=== PATIENT | male | born 1965 | race Caucasian/White ===

== ENCOUNTER → 2018-06-26 12:08 | Outpatient (CLI) | payer OTHER, SELFPAY ==
--- NOTE | 2018-06-26 12:14 | RAD_ITS ---
STUDY: X-RAY - PELVIS AND RIGHT HIP REASON FOR EXAM: Male, 53 years old. Pain TECHNIQUE: Three views of the pelvis and hip were obtained. COMPARISON: None. FINDINGS: The bowel gas pattern is unremarkable. There are phleboliths in the lower right pelvis. There are moderate degenerative changes in the lower lumbar spine. There are mild degenerative changes in the sacroiliac joints. There are small enthesophytes off both iliac bones. No abnormalities are seen in the visualized superior and inferior pubic rami. Normal appearing pubic symphysis. The visualized ischial tuberosities are unremarkable. The proximal femur shows no significant abnormalities. The acetabulum shows no significant abnormalities. The hip joint is normal in appearance. RAD/HIP, UNI W/ Pelvis 2-3 Views IMPRESSION: No significant abnormalities are seen radiographically in the right hip. Electronically Signed: Hanna Kolb MD at 17:45 EST Tel Direct: [phone], Service support ,
== END ==
PROVIDERS: Family Provider Family Medicine; PCP Family Medicine; Referring Provider Family Medicine; Visit Provider Family Medicine
DX: M25.551 Pain in right hip (principal)
CPT/HCPCS: 73502

== ENCOUNTER → 2018-10-01 08:17 | Outpatient (CLI) | payer OTHER, SELFPAY ==
[2018-10-01 10:17] LABS: Absolute Lymphocyte Count 1.72 X10^3/ul (0.83-4.51); Anion Gap 7 (5-15); BUN 15 mg/dL (7-18); BUN/Creat Ratio 16.1 RATIO (10-20); Basophil# 0.02 X10^3/uL; Basophil% 0.4 % (0-1); Calcium,Total 9.1 mg/dL (8.5-10.1); Chloride 103 mmol/L (98-107); Creatinine, Serum 0.93 mg/dL (0.70-1.30); EST Glomerular Filtration Rate 89 mL/min (>60); Eosinophil# 0.15 X10^3/uL; Eosinophils% 2.8 % (0-5); Est Glom Filt Rate - Afr Amer 108 mL/min (>60); Glucose 91 mg/dL (74-106); Hematocrit 43.5 % (40-54); Hemoglobin 14.9 g/dl (13.0-16.5); Lymphocyte # 1.72 X10^3/ul (4.0); Lymphocyte % 31.7 % (19-41); Mean Corp Hgb Conc 34.3 g/gl (32-36); Mean Corpuscular Hgb 31.6 pg (27.0-32.0); Mean Corpuscular Volume 92.4 fL (80-94); Mean Platelet Vol. 12.7 fl (6.2-12.0); Monocyte% 9.2 % (0-10); Neutrophil # 3.01 X10^3/uL (2.7-7.7); Neutrophil % 55.5 % (47-70); Platelet Count 134 K/mm3 (150-450); Potassium 4.4 mmol/L (3.5-5.1); RBC Distribution Width CV 13.3 % (11.6-14.6); RBC Distribution Width SD 43.8 fl (35.1-43.9); Red Blood Count 4.71 M/mm3 (4.6-6.2); Sodium Level 139 mmol/L (136-145); White Blood Count 5.4 K/mm3 (4.4-11.0)
[2018-10-01 10:38] LABS: POSITIVE COUNT NO; POSITIVE DIFFERENTIAL NO; POSITIVE MORPHOLOGY NO
== END ==
PROVIDERS: Family Provider Family Medicine; PCP Family Medicine; Visit Provider Family Medicine
DX: K46.9 Unspecified abdominal hernia without obstruction or gangrene (principal)
CPT/HCPCS: 36415; 80048; 85025

== ENCOUNTER 2020-02-03 06:51 | Day surgery (SDC) | payer OTHER, SELFPAY ==
[2018-10-10 08:34] VITALS: BMI 28.1
[2020-02-03 07:05] VITALS: BP 151/83; PULSE 64; RESP 16; TEMP 36.4; O2SAT 100; BMI 26.3
[2020-02-03] MEDS: Lactated Ringers 1,000 ML 100 ML IV (07:15)
--- NOTE | 2020-02-03 07:56 | H&P.OPEN ---
History of Present Illness Date of Admission: 02/03/20 The patient is a 55 year old M who presents for screening colonoscopy. Patient had his last colonoscopy when he was 33 years old for rectal bleeding which was negative. Was done by Dr. Reyes Past Medical/Surgical History - Planned Operation Planned Operative Procedure/s: cscope Date of Operative Procedure: 02/03/20 Permit Signed: No S.O.S: No Is This Patient Having a Total Joint: No - Previous Hospitalizations/Surgeries HX Hospitalizations: No HX of Surgeries: left wrist surgery. inguinal hernia repair x2 with vasectomy. cscope Any Problems With Anesthesia: No You/Your Family Experience Fever (Hyperthermia) With Anes: No Cholinesterase deficiency: No - Cardiovascular Hx Chest Pain within Last 2 months: No Hx of Irregular Heartbeat and/or Afib: No Hx Heart Attack: No Hx Congestive Heart Failure: No Hx Rheumatic Fever: No Hx Hypertension: No Hx Internal Defibrillator: No Hx Pacemaker: No Hx Cardiac Catheterization: No Hx Cardiac Surgery/Stents/Etc.: No Hx Stress Test: No HX Edema: No Hx Pain in Legs when Walking/Leg Cramps: No - Respiratory Chronic Cough: No HX of Shortness of Breath: No Hoarseness: No Hx Chronic Obstructive Pulmonary Disease (COPD): No Hx Asthma: No Hx Emphysema: No Hx Sleep Apnea: No Hx Oxygen Use at Home: No Hx Respiratory Tract Infection/Cold (presently): No Do You Snore Loudly (louder than talking or can be heard): No Do You Often Feel Tired/ Fatigued/ Sleepy Dring Daytime?: No Has Anyone Observed You Stop Breathing During Sleep?: No Result (for STOP score): Negative Hx Smoking: Yes Smoking Status: Current some day smoker - Gastrointestinal Hx Gastroesophageal Reflux: No Hx Gastrointestinal Disorders: No Hx Gastrointestinal Bleed: No Hx Ulcer: No Hx Hiatal Hernia: No Difficulty Chewing/Swallowing: No Recent Onset of Swallowing Problems: No Special diet followed at home: No Hx Unplanned Weight Loss of 20#: No HX Unplanned Weight Gain of 20#: No - Neurological Hx Seizures: No HX Syncope/Blackout Spells/Unconsciousness: No Hx CVA/Stroke: No Hx Transient Ischemic Attacks (TIA): No Hx Multiple Sclerosis: No Hx Parkinson's Disease: No Hx Head/Neck Injury: No Hx Headaches: No Hx Back Injury/Pain: No Recent Onset of Speech Difficulty: No Restless Legs: No Does patient have nerve stimulator: No Patient instructed to have device shut off: No Rep notified?: No - Blood Disorder Hx Leukemia: No Bleeding Tendencies: No Hx Deep Vein Thrombosis: No Hx High Cholesterol: No Blood Transmitted Disease: No Hx Hepatitis: No Hx Cirrhosis: No Hx Anemia: No Hx Blood Disorders: No - Genitourinary Hx Renal Disease: No - Musculoskeletal Hx Arthritis: No Hx Rheumatoid Arthritis: No Hx Gout: No Recent Onset of an Orthopedic Problem: No - Endocrine Hx Diabetes: No Thyroid Disease: No Hx Steroid Therapy: No - Psycho/Social Hx Substance Use: No Hx Alcohol Use: Yes - 3 beers daily Hx Anxiety: No Hx Depression: No Mental Illness: No Hx Dementia: No - Miscellaneous Hx Cancer: No Recent Exposure to Contagious Disease: No Active MRSA: No Hx of C-Diff: No Any Loose Teeth: No Allergies No Known Allergies Allergy (Verified 02/03/20 07:02) - Discharge Is Pt Admitted From a Care Home, or a Penitentiary: No After D/C, Where Do you Plan to Go: Return Home - Physical Exam Vitals/I&O's: Vital Signs Temp Pulse Resp BP Pulse Ox 97.5 F L 64 16 151/83 H 100 02/03/20 07:05 02/03/20 07:05 02/03/20 07:05 02/03/20 07:05 02/03/20 07:05 Oxygen Delivery Method Room Air Weight: 173 lb 1.006 oz Body Mass Index (BMI) 26.3 General: Alert, Oriented x3 Lungs: Clear to auscultation Cardiovascular: Regular rate, Regular Rhythm, No murmurs Abdomen: Bowel Sounds Present, Soft, Non Tender, Non-Distended Laboratory Results 01/28/20 16:41: COVID-19 ([facility]) Not Detected Current Medications Lactated Ringer's () 1,000 mls @ 100 mls/hr IV .Q10H PERLA Last Admin: 02/03/20 07:15 Dose: 100 mls/hr Documented by: Assessment/Plan All Active Problems (Last Reviewed 10/10/18 @ 08:33 by Muna Lyon) Left inguinal hernia (Acute) Hx of colonoscopy (Acute) History of arthroplasty (Acute) Hx of vasectomy (Acute) Hx of right inguinal hernia repair (Acute) Hx of left inguinal hernia repair (Acute) Plan will be to perform a colonoscopy. Procedure Criteria Procedure Type: Elective COVID Risk Discussion: The surgeon/proceduralist and patient have discussed in detail the risk of exposure to and/or potential harm posed by the COVID-19 virus with having a surgery/procedure at this time versus the risk of delaying the surgery/procedure. It is not possible to know either the risk of delaying the surgery or procedure or chance of getting an infection with perfect accuracy, but a joint decision was made between the patient and the surgeon/proceduralist to proceed at this time with the scheduled surgery/procedure as indicated on the consent form. Surgery Risks - Colonoscopy Risks Include but are not Limited To: Risks include but are not limited to: Bleeding, perforation requiring further surgery, inability to complete colonoscopy requiring barium enema.
--- NOTE | 2020-02-03 08:21 | OP.COLON_ITS ---
Patient Name: Deon Love Procedure Date: 02/03/2020 7:59 AM Date of : 1965 Age: 55 Procedure: Colonoscopy Indications: Screening for colorectal malignant neoplasm Providers: Toño Mobley MD Referring MD: Ezra Villalba MD Medicines: See the Anesthesia note for documentation of the administered medications Patient Profile: This is a 55 year old male. Refer to note in patient chart for documentation of history and physical. Last Colonoscopy: more than 10 years ago. Complications: No immediate complications. Procedure: Pre-Anesthesia Assessment: - Prior to the procedure, a History and Physical was performed, and patient medications and allergies were reviewed. The patient's tolerance of previous anesthesia was also reviewed. The risks and benefits of the procedure and the sedation options and risks were discussed with the patient. All questions were answered, and informed consent was obtained. Prior Anticoagulants: The patient has taken no previous anticoagulant or antiplatelet agents. ASA Grade Assessment: II - A patient with mild systemic disease. After reviewing the risks and benefits, the patient was deemed in satisfactory condition to undergo the procedure. After I obtained informed consent, the scope was passed under direct vision. Throughout the procedure, the patient's blood pressure, pulse, and oxygen saturations were monitored continuously. The adult colonoscope was introduced through the anus and advanced to the cecum, identified by appendiceal orifice and ileocecal valve. The colonoscopy was performed without difficulty. The patient tolerated the procedure well. The quality of the bowel preparation was good. Scope In: 8:08:12 AM Scope Withdrawal Time 0 hours 6 minutes 6 seconds Scope Out: 8:19:13 AM Total Procedure Duration Time 0 hours 11 minutes 1 second Findings: The exam was otherwise without abnormality on direct and retroflexion views. Impression: - The examination was otherwise normal on direct and retroflexion views. - No specimens collected. Recommendation: - Discharge patient to home. - Resume previous diet. - Continue present medications. - Repeat colonoscopy in 10 years for screening purposes. - Return to primary care physician (date not yet determined). Procedure Code(s): --- Professional --- 73615, Colonoscopy, flexible; diagnostic, including collection of specimen(s) by brushing or washing, when performed (separate procedure) Diagnosis Code(s): --- Professional --- Z12.11, Encounter for screening for malignant neoplasm of colon CPT copyright 2017 [employer]. All rights reserved. The codes documented in this report are preliminary and upon dental claims processor review may be revised to meet current compliance requirements. MD Toño Castro MD 02/03/2020 8:21:37 AM This report has been signed electronically. Number of Addenda: 0 Note Initiated On: 02/03/2020 7:59 AM
--- NOTE | 2020-02-03 08:22 | OP.CCLET_ITS ---
02/03/2020 Ezra Villalba MD [address] [id number] Re : Colonoscopy procedure for Deon Love Dear Dr. Villalba This procedure was performed on Monday, February 03, 2020. My impressions and recommendations are as follows: Impressions : - The examination was otherwise normal on direct and retroflexion views. - No specimens collected. Recommendations : - Discharge patient to home. - Resume previous diet. - Continue present medications. - Repeat colonoscopy in 10 years for screening purposes. - Return to primary care physician (date not yet determined). My findings are described in the full procedure note, which is enclosed. If I can be of further assistance, please feel free to contact me at Doctor phone number(s): , Fax: [phone], Work: . Sincerely, MD Toño Castro MD 02/03/2020 8:21:37 AM This report has been signed electronically.
[2020-02-03 08:24] VITALS: BP 113/82; BP 151/83; PULSE 56; RESP 14; TEMP 36.4; O2SAT 96
[2020-02-03 08:29] VITALS: BP 104/80; BP 151/83; PULSE 57; RESP 15; O2SAT 94
[2020-02-03 08:34] VITALS: BP 110/91; BP 151/83; PULSE 54; RESP 16; O2SAT 97
[2020-02-03 08:39] VITALS: BP 119/79; BP 151/83; PULSE 53; RESP 16; TEMP 36.3; O2SAT 98
[2020-02-03 09:08] VITALS: BP 123/96; BP 151/83; PULSE 98; RESP 18; TEMP 36.6; O2SAT 100
== END 2020-02-03 09:15 | disposition home or self-care (01) ==
LOC: EN 06:51 → AC 06:53
PROVIDERS: PCP Family Medicine; Referring Provider Family Medicine; Visit Provider Surgery
PROC: 0DJD8ZZ Inspection of Lower Intestinal Tract, Via Natural or Artificial Opening Endoscopic (ICD-10-PCS; CPT 45378; principal; 2020-02-03 07:55)
DX: Z12.11 Encounter for screening for malignant neoplasm of colon (principal); Z11.59 Encounter for screening for other viral diseases; F17.200 Nicotine dependence, unspecified, uncomplicated
CPT/HCPCS: 45378; 87635; G2023; J7120; U0003